=== PATIENT | female | born 1985 | race African-American/Black ===

== ENCOUNTER 2021-12-02 17:57 | Emergency (ER) | payer BC, OTHER ==
[2021-12-02] MEDS ORDERED: Alum Hydrox/Mag Hydrox/Simeth 30 ML, Lidocaine 2% 15 ML PO ONE ×2 (18:21)
== END 2021-12-02 20:25 | disposition home or self-care (01) ==
LOC: JD.ED 17:57
DX: R07.89 Other chest pain (principal); Z79.899 Other long term (current) drug therapy
CPT/HCPCS: 36415; 71045; 80053; 83735; 84484; 85025; 85379; 86140; 93005; 99285; A9270; 93010